=== PATIENT | female | born 1990 | race Caucasian/White ===

== ENCOUNTER 2021-10-08 16:28 | Emergency (ER) | payer SELFPAY ==
[~2021-10-08] VITALS: Ht 154.9 cm; Wt 54.5 kg
[2021-10-08 17:00] LABS: CLARITY,URINE CLOUDY (Clear); COLOR,URINE YELLOW (Yellow); GLUCOSE, URINE NEGATIVE (Neg); KETONES,URINE 15 mg/dl (Neg); LEUKOCYTE ESTERASE ,URINE NEGATIVE (Neg); NITRITES, URINE NEGATIVE (Neg); OCCULT BLOOD,URINE LARGE (Neg); PROTEIN,URINE 30 mg/dl (Neg); UROBILINOGEN,URINE 0.2 E.U/dL (0.2-1.0)
[2021-10-08 17:01] LABS: UA COLLECTION TYPE CLN CATCH MIDSTREAM
[2021-10-08 17:07] LABS: WBC,URINE 0-4 /HPF (0-4)
[2021-10-08 17:08] LABS: BACTERIA,URINE FEW /HPF (Neg); HYALINE CASTS 0-3 /LPF (NEGATIVE); MUCUS STRANDS MODERATE /LPF (Neg); RBC,URINE 50-100 /HPF (0-2); SQUAMOUS EPITHELIAL CELL,UR MANY /LPF (FEW)
[2021-10-08 17:12] LABS: BASOPHILS # (AUTO) 0.1 X10'3 (0-0.2); BASOPHILS % (AUTO) 0.6 % (0-1); EOSINOPHILS % (AUTO) 0.1 % (0-6); HEMATOCRIT 41.6 % (35.0-45.0); HEMOGLOBIN 14.5 g/dl (12.0-16.0); LYMPHOCYTES # (AUTO) 1.2 X10'3 (1.1-4.8); LYMPHOCYTES % (AUTO) 6.6 % (21-51); MEAN CORPUSCULAR HEMOGLOBIN 33.1 PG (27.0-31.0); MEAN CORPUSCULAR HGB CONC 34.8 g/dL (33.0-36.5); MEAN CORPUSCULAR VOLUME 94.9 FL (78-98); MEAN PLATELET VOLUME 6.3 FL (7.4-10.4); MONOCYTES # (AUTO) 0.5 X10'3 (0-0.9); MONOCYTES % (AUTO) 2.7 % (2-12); NEUTROPHILS # (AUTO) 16.9 X10'3 (1.8-7.7); PLATELET COUNT 405 X10'3 (140-440); RED BLOOD COUNT 4.39 X10'6 (4.20-5.60); RED CELL DISTRIBUTION WIDTH 12.5 % (11.5-14.5); WHITE BLOOD COUNT 18.8 X10'3 (4.5-11.0)
[2021-10-08 17:22] LABS: ALANINE AMINOTRANSFERASE 17 U/L (12-78); ALBUMIN 3.6 G/DL (3.4-5.0); ALKALINE PHOSPHATASE 70 IU/L (46-116); ANION GAP 12 (8-16); ASPARTATE AMINO TRANSFERASE 13 U/L (10-37); BILIRUBIN,TOTAL 0.5 MG/DL (0.1-1.0); BLOOD UREA NITROGEN 6 MG/DL (7-18); BUN/CREATININE RATIO 10.2 (6.6-38.0); CALCIUM 8.8 MG/DL (8.5-10.1); CHLORIDE 100 MMOL/L (99-107); CREATININE 0.59 MG/DL (0.40-0.90); GLUCOSE 110 MG/DL (70-104); POTASSIUM 3.6 MMOL/L (3.5-5.1); SODIUM 135 MMOL/L (135-145); TOTAL CARBON DIOXIDE 23.2 MMOL/L (24-32); TOTAL PROTEIN 7.3 G/DL (6.4-8.2); eGFR > 90 ML/MIN
--- NOTE | 2021-10-08 17:28 | NUR ---
[employer] tech at bedside.
[2021-10-08] MEDS ORDERED: normal saline 1000ML IV soln IV ONE (17:30)
[2021-10-08] MEDS ORDERED: CefTRIAXone 2gm/D5W 50ml BAG 50 ML IV ONE (17:30)
[2021-10-08 17:47] LABS: BETA HCG,QUANTITATIVE 1040 mIU/ml
[2021-10-08 18:01] LABS: TOTAL CELLS COUNTED 100
[2021-10-08 18:07] LABS: HCG SERUM QL POSITIVE
[2021-10-08 18:08] LABS: PLATELET ESTIMATE NORMAL
[2021-10-08 18:09] LABS: TOXIC GRANULATION 1+
[2021-10-08 18:10] LABS: LARGE PLATELETS FEW; STOMATOCYTES 1+; TOXIC VACUOLATION FEW
[2021-10-08 18:16] VITALS: BP 128/76
--- NOTE | 2021-10-08 19:02 | NUR ---
Patient up to the bathroom.
[2021-10-08] MEDS ORDERED: DOXY-1 PO (22:41)
== END 2021-10-08 23:04 | disposition left against medical advice (07) ==
LOC: ER 16:29
DX: O02.1 Missed abortion (principal); O08.82 Sepsis following ectopic and molar pregnancy; R65.20 Severe sepsis without septic shock; Z3A.12 12 weeks gestation of pregnancy; N71.9 Inflammatory disease of uterus, unspecified; Z20.822 Contact with and (suspected) exposure to COVID-19
CPT/HCPCS: 36415; 76801; 80053; 81001; 84702; 84703; 85007; 85025; 86885; 86900; 86901; 87635; 96365; 99285; C9803; J0696; J7030